=== PATIENT | male | born 1940 | race Caucasian/White ===

== ENCOUNTER 2020-05-22 11:23 | Outpatient (CLI) | payer MEDICARE ==
[~2020-05-22 11:23] MED LIST: AZOR 10-20 MG1 EACH ORAL; COLACE100 MG ORAL; CRESTOR20 MG ORAL; ESCITALOPRAM OX10 MG ORAL; GLIPIZIDE5 MG ORAL; METFORMIN HCL850 M1 ORAL; NORCO 10-325 T1 EACH ORAL; VESICARE5 MG ORAL
--- NOTE | 2020-05-23 16:14 | Consultation ---
DATE OF CONSULTATION: 05/22/2020 CHIEF COMPLAINT: Referral for colonoscopy and history of chronic GERD. PAST MEDICAL HISTORY: 1. Diabetes. 2. . 3. Hypertension. PAST SURGICAL HISTORY: Back surgery. MEDICATIONS: Please see medication reconciliation list. FAMILY HISTORY: Noncontributory. SOCIAL HISTORY: The patient denies any tobacco, alcohol, or drug abuse. ALLERGIES: No known allergies. REVIEW OF SYSTEMS: A 10-point review of systems performed and was negative. PHYSICAL EXAMINATION: GENERAL: A well-developed male, in no acute distress. HEENT: Normocephalic and atraumatic. Sclerae anicteric. NECK: Supple. No evidence of obvious lymphadenopathy. CARDIOVASCULAR: Regular rate and rhythm. Plus S1, S2. LUNGS: Clear to auscultation bilaterally. ABDOMEN: Positive bowel sounds. Soft and nontender. No rebound. No guarding. No peritoneal sign. EXTREMITIES: No cyanosis. No clubbing. No edema. ASSESSMENT AND PLAN: This is a 80-year-old male was referred for screening colonoscopy and given chronic gastroesophageal reflux disease will also need endoscopy. The patient was given instruction for both procedures. Risks and benefits was explained to him. We are going to go ahead and schedule him soon. I want to thank Dr. Aung Jones, for this kind referral. Aung Prasad M.D. DR: Linnea JOB#: [id number] CC: Aung Jones MD
== END 2020-05-22 13:23 | disposition home or self-care (01) ==
LOC: PAN 11:23
DX: K21.9 Gastro-esophageal reflux disease without esophagitis (principal); E11.9 Type 2 diabetes mellitus without complications; I10 Essential (primary) hypertension
CPT/HCPCS: G0463

== ENCOUNTER 2020-06-05 09:22 | Outpatient (CLI) | payer MEDICARE ==
--- NOTE | 2020-06-05 09:40 | General Progress Note ---
Subjective ROS Limited/Unobtainable: Yes Allergies: Coded Allergies: No Known Allergies (Unverified , 05/25/20) Objective General Appearance: alert EENT: normal ENT inspection Neck: supple Cardiovascular: normal rate Respiratory/Chest: lungs clear Abdomen: hypoactive bowel sounds Extremities: non-tender Assessment/Plan Assessment/Plan: SUMMARY OF FINDINGS: 1. Gastritis suspicious for H. pylori infection, status post biopsy. 2. Internal hemorrhoids. 3. Diverticulosis. HP positive treat RTC in 3 months Aung Prasad MD Jun 05, 2020 09:40
== END 2020-06-05 11:22 | disposition home or self-care (01) ==
LOC: PAN 09:22
DX: K29.70 Gastritis, unspecified, without bleeding (principal); K64.8 Other hemorrhoids; K57.90 Diverticulosis of intestine, part unspecified, without perforation or abscess without bleeding